=== PATIENT | female | born 1985 | race Hispanic/Latino ===

== ENCOUNTER 2018-08-31 18:55 | Emergency (ER) | payer SELFPAY ==
[~2018-08-31] VITALS: Ht 162.6 cm; Wt 81.6 kg
--- OUTSIDE RECORDS SUMMARY | 2018-08-31 18:57 | XMS REPORT ---
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 Allergies, Adverse Reactions, Alerts Allergy Name Allergy Type Status Severity Reaction(s) Onset Date Inactive Date Treating Clinician Comments promethazine HCl DA Active [place] 2018-06-28 00:00:00 promethazine HCl DA Active MO 2018-02-19 00:00:00 Medications This patient has no known medications.
== END 2018-08-31 19:28 | disposition home or self-care (01) ==
LOC: ER 18:55
DX: R50.9 Fever, unspecified (principal); R05 Cough; J02.0 Streptococcal pharyngitis
CPT/HCPCS: 99282

== ENCOUNTER 2019-04-18 20:27 | Emergency (ER) | payer SELFPAY | END 2019-04-18 20:40 | disposition left against medical advice (07) | LOC: ER 20:27 | DX: R69 Illness, unspecified (principal) ==

== ENCOUNTER 2019-06-16 16:49 | Emergency (ER) | payer SELFPAY ==
[~2019-06-16] VITALS: Ht 162.6 cm; Wt 75.7 kg
== END 2019-06-16 17:12 | disposition home or self-care (01) ==
LOC: ER 16:49
DX: J02.0 Streptococcal pharyngitis (principal)
CPT/HCPCS: 99282

== ENCOUNTER 2019-12-03 23:36 | Emergency (ER) | payer SELFPAY ==
--- OUTSIDE RECORDS SUMMARY | 2019-12-03 23:40 | XMS REPORT ---
Author Author [facility] t Organization [facility] Address [address] [place] [address] Phone Unavailable Care Team Providers Care Social Work Program Coordinator Name Role Phone NO, PCP PCP Unavailable Keily DALE Attphys Unavailable Payers Payer Name Policy Type Policy Number Effective Date Expiration Date S ource Problems This patient has no known problems. Allergies, Adverse Reactions, Alerts Allergy Name Allergy Type Status Severity Reaction(s) Onset Date Inacti ve Date Treating Clinician Comments Source promethazine HCl DA Active MO 2019-10-26 00:00:00 [facility] promethazine HCl DA Active MO 2019-06-13 00:00:00 [facility] morphine DA Active MO 2019-06-13 00:00:00 [facility] morphine DA Active MO 2018-11-18 00:00:00 [facility] Promethazine Allergy to Substance Active Severe 2018-08-31 00:00:0 0 [facility] promethazine HCl DA Active MO 2018-06-28 00:00:00 [facility] promethazine HCl DA Active MO 2018-02-19 00:00:[address] [facility] Medications This patient has no known medications. Procedures Procedure Date / Time Performed Performing Clinician Sourmica e CT of abdomen and pelvis without contrast 2019-08-17 00:00:00 VAL GAONA [facility] Encounters Start Date/Time End Date/Time Encounter Type [facility] Encounter ID Source 2019-08-17 12:21:00 2019-08-17 15:43:00 Departed Emergency Room 1 THOMAS DALE [facility] [id number] [facility] 2019-06-16 16:49:00 2019-06-16 17:12:00 Departed Emergency Room [facility] [id number] [facility] 2019-05-05 22:51:00 2019-05-05 23:30:00 Departed Emergency Room [facility] [id number] [facility] 2019-04-18 20:27:00 2019-04-18 20:40:00 Departed Emergency Room [facility] [id number] [facility] 2018-08-31 18:55:00 2018-08-31 19:28:00 Departed Emergency Room [facility] [id number] [facility] Results Test Description Test Time Test Comments Results Result Comments Source - US EXTREM NON VASC COMP 2019-10-27 01:20:00 Name: KIN BLANTON [facility] : 1985 Age/S: 34 / F [address] Unit #: [id number] [place] [address] Phys: Roxana Molina MD Acct: [id number] Dis Date: Status: REG ER PHONE #: [phone] Exam Date: 10/27/201938 FAX #: [phone] Reason: left knee pain and swelling behind the knee EXAMS: CPT CODE: [id number] US EXTREM NON VASC COMP 93527 EXAM: - US EXTREM NON VASC COMP HISTORY: Left knee pain. FINDINGS: Ultrasound the left knee at the region of interest in popliteal fossa was performed. There is a popliteal fluid collection possibly representing a cyst measuring 3 x 1 cm extending laterally. IMPRESSION: Popliteal cyst. at 0120 Reported and signed by: Valerio Dang MD CC: Roxana Molina MD Technologist: Oneyda Farr RT(S), RDOH Trnscb Date/Time: 10/27/2019 (119) [email or web address] Orig Print D/T: S: 10/27/2019 (012) Probe: PAGE 1 Signed Report - XR KNEE 3 V LT 2019-10-27 00:21:00 FAX: Roxana Molina MD [place]: St: REG -- Name: KIN BLANTON [facility] : 1985 Age/S: 34/F [address] [facility] Unit #: [id number] Loc: [place] [address] Phys: Roxana Molina MD Acct: [id number] Dis Date: Status: REG ER PHONE #: [phone] Exam Date: 10/26/2019 2708 FAX #: [phone] Reason: left knee pain EXAMS: CPT CODE: [id number] XR KNEE 3 V LT 74605 EXAM: - XR KNEE 3 V LT HISTORY: Pain. COMPARISON: None available time of interpretation. FINDINGS: AP, oblique, and lateral view of the left knee is provided. There is no acute fracture or malalignment. The joint spaces are preserved. The osseous structures are intact. IMPRESSION: No acute osseous abnormality. at 0021 Reported and signed by: Valerio Dang MD CC: Roxana Molina MD Technologist: CANDY DONATO) Trnscrd Date/Time/By: 10/27/2019 (002) : By: [email or web address] Orig Print D/T: S: 10/27/2019 (0025) PAGE [address] ABDOMEN/PELVIS WO 2019-08-17 14:56:00 [place] [address] Patient Name: KIN BLANTON MR #: [id number] : 1985 Age/Sex: 33/F Req #: [id number] Adm Physician: Ordered by: VAL KILGORE QC SCIENTIST Report #: [id number] Location: ER Room/Bed: Procedure: [id number] CT/CT ABDOMEN/PELVIS WO Exam Date: 08/17/19 Exam Time: 1400 REPORT STATUS: Signed EXAM: CT Abdomen and Pelvis WITHOUT contrast INDICATION: Right abdominal and flank pain. COMPARISON: None. TECHNIQUE: Abdomen and pelvis were scanned utilizing a multidetector helical scanner from the lung base to the pubic symphysis without administration of IV contrast. Absence of intravenous contrast decreases sensitivity for detection of focal lesions and vascular pathology. Coronal and sagittal reformations were obtained. Renal stone protocol was performed. IV CONTRAST: None. ORAL CONTRAST: Water RADIATION DOSE: Total DLP: 407.27 mGy*cm Estimated effective dose: (DLP x 0.015 x size factor) mSv COMPLICATIONS: None FINDINGS: LINES and TUBES: None. LOWER THORAX: 2 mm calcified nodule in the right middle lobe on image 2. Calcified granulomata in the right lung base on image 16 series 3. HEPATOBILIARY: No focal hepatic lesions. No biliary ductal dilation. GALLBLADDER: There are cholecystectomy clips. SPLEEN: No splenomegaly. PANCREAS: No focal masses or ductal dilatation. ADRENALS: No adrenal nodules. KIDNEYS/URETERS: No hydronephrosis. No cystic or solid mass lesions. No stones. GI TRACT: No abnormal distention, wall thickening, or evidence of bowel obstruction. Appendix is normal. PELVIC ORGANS/BLADDER: Bilateral phleboliths. LYMPH NODES: No lymphadenopathy. VESSELS: Unremarkable. PERITONEUM / RETROPERITONEUM: No free air or fluid. BONES: Unremarkable. SOFT TISSUES: Unremarkable. IMPRESSION: 1. No acute abdominal pelvic abnormality. Signed by: Dr. Hu Veloz M.D. on 08/17/2019 3:06 PM Dictated By: MARGARETTE VELOZ MD, MD 1506 Transcribed By: AMIRAH on 08/17/19 1506 COPY TO: VAL KILGORE QC SCIENTIST Urine WBC 2019-08-17 13:56:00 Test Item Urine WBC (test code = 5821-4) 0-5 0-5 [facility] [id number] 13:56:00* Test Item Value Reference Range Interpretation Comments Urine RBC (test code = 14608-2) 0-5 0-5 [facility] Ukuspsqu5944-03-06 13:56:00* Test Item Value Reference Range Interpretation Comments Urine Bacteria (test code = 59212-9) FEW NONE [facility] Epithelial Tlmkr8151-22-45 13:56:00 * Test Item Value Reference Range Interpretation Comments Urine Epithelial Cells (test code = 98255-0) FEW NONE [facility] Ilwz6846-33-90 13:56:00* Test Item Value Reference Range Interpretation Comments Urine Test (test code = 2106-3) NEGATIVE NEGATIVE [facility] Gwvkl8363-94-14 13:52:00* Test Item Value Reference Range Interpretation Comments Urine Color (test code = 5778-6) YELLOW YELLOW [facility] Eiqnwcj8287-83-60 13:52:00* Test Item Value Reference Range Interpretation Comments Urine Clarity (test code = 47046-6) CLEAR CLEAR [facility] Specific Ubgfqpr5633-94-64 13:52:00 * Test Item Value Reference Range Interpretation Comments Urine Specific Bryan (test code = 5811-5) 1.030 1.010-1.02 5 [facility] [id number] 13:52:00* Test Item Value Reference Range Interpretation Comments Urine pH (test code = 64800-6) 7 5-7 [facility] Leukocyte Snpcalql5320-06-03 13:52:00* Test Item Value Reference Range Interpretation Comments Urine Leukocyte Esterase (test code = 5799-2) NEGATIVE NEGATIVE [facility] Lszxmva4072-84-05 13:52:00* Test Item Value Reference Range Interpretation Comments Urine Nitrite (test code = 55104-1) NEGATIVE NEGATIVE [facility] Owmtwza6920-56-06 13:52:00* Test Item Value Reference Range Interpretation Comments Urine Protein (test code = 5804-0) NEGATIVE NEGATIVE [facility] Glucose (UA)2019-08-17 13:52:00* Test Item Value Reference Range Interpretation Comments Urine Glucose (UA) (test code = 2349-9) NEGATIVE NEGATIVE [facility] Yhcktuw6068-67-89 13:52:00* Test Item Value Reference Range Interpretation Comments Urine Ketones (test code = 91722-0) NEGATIVE NEGATIVE [facility] Briwcauaacrk6627-06-37 13:52:00* Test Item Value Reference Range Interpretation Comments Urine Urobilinogen (test code = 03624-2) 0.2 0.2-1 [facility] Pmlgivkbm8966-64-50 13:52:00* Test Item Value Reference Range Interpretation Comments Urine Bilirubin (test code = 1978-6) NEGATIVE NEGATIVE [facility] Ftzye1412-20-94 13:52:00* Test Item Value Reference Range Interpretation Comments Urine Blood (test code = 53941-2) NEGATIVE NEGATIVE [facility] Pbmpw5981-93-52 13:37:00* Test Item Value Reference Range Interpretation Comments Sodium Level (test code = 2951-2) 138 136-145 [facility] Center[facility]assium Tiall4566-57-01 13:37:00* Test Item Value Reference Range Interpretation Comments Potassium Level (test code = 2823-3) 4.3 3.5-5.1 [facility] CenterChloride Cokwn0055-24-89 13:37:00* Test Item Value Reference Range Interpretation Comments Chloride Level (test code = 2075-0) 105 98-107 [facility] CenterCarbon Dioxide Kmshf0979-64-59 13:37:00* Test Item Value Reference Range Interpretation Comments Carbon Dioxide Level (test code = 2028-9) 22 22- [facility] CenterAnion Bmc2306-67-51 13:37:00* Test Item Value Reference Range Interpretation Comments Anion Gap (test code = 86638-0) 15.3 8-16 [facility] CenterBlood Urea Dtchvipx4332-59-08 13:37:00* Test Item Value Reference Range Interpretation Comments Blood Urea Nitrogen (test code = 3094-0) 10 7- [facility] CenterCreatinine2020-01-25 13:37:00* Test Item Value Reference Range Interpretation Comments Creatinine (test code = 2160-0) 0.76 0.57-1.11 [facility] CenterBUN/Creatinine Cxlin0330-16-90 13:37:00* Test Item Value Reference Range Interpretation Comments BUN/Creatinine Ratio (test code = 3097-3) 13 - [facility] CenterEstimat Glomerular Filtration Rate 2019-08-17 13:37:00* Test Item Value Reference Range Interpretation Comments Estimat Glomerular Filtration Rate (test code = 983372693) > 60 >60 Ranges were taken from the National Kidney Disease Education Program and the [place] [facility] Kidney Foundation literature.Reference ranges:60 or greater: Gvgzur84-65 ( for 3 consecutive months): Chronic kidney disease 15 or less: Kidney failureCovenant Medical CenterGlucose Hoose2342-55-16 13:37:00* Test Item Value Reference Range Interpretation Comments Glucose Level (test code = VSV6558) 86 74-118 [facility] CenterCalcium Wfhsu3740-09-27 13:37:00* Test Item Value Reference Range Interpretation Comments Calcium Level (test code = 47680-8) 9.1 8.4-10.2 [facility] CenterTotal Qofcgozii0698-16-53 13:37:00* Test Item Value Reference Range Interpretation Comments Total Bilirubin (test code = 1975-2) 0.5 0.2-1.2 [facility] CenterAspartate Amino Transf (AST/SGOT) 2019-08-17 13:37:00* Test Item Value Reference Range Interpretation Comments Aspartate Amino Transf (AST/SGOT) (test code = Aspartate Amino Transf (AST/SGOT)) 16 5-34 [facility] CenterAlanine Aminotransferase (ALT/SGPT) 2019-08-17 13:37:00* Test Item Value Reference Range Interpretation Comments Alanine Aminotransferase (ALT/SGPT) (test code = 1742-6) 26 0-55 [facility] CenterTotal Qtnkznj6088-92-28 13:37:00* Test Item Value Reference Range Interpretation Comments Total Protein (test code = 2885-2) 6.6 6.5-8.1 [facility] CenterAlbumin2020-01-25 13:37:00* Test Item Value Reference Range Interpretation Comments Albumin (test code = 1751-7) 4.0 3.5-5.0 [facility] CenterGlobulin2020-01-25 13:37:00* Test Item Value Reference Range Interpretation Comments Globulin (test code = 89757-9) 2.6 2.3-3.5 [facility] CenterAlbumin/Globulin Amwkj6791-70-12 13:37:00 * Test Item Value Reference Range Interpretation Comments Albumin/Globulin Ratio (test code = 1759-0) 1.5 0.8-2.0 [facility] CenterAlkaline Foertzgykeq2563-04-24 13:37:00* Test Item Value Reference Range Interpretation Comments Alkaline Phosphatase (test code = 6768-6) 58 40-150 [facility] CenterAmylase Yazkv8398-54-04 13:37:00* Test Item Value Reference Range Interpretation Comments Amylase Level (test code = 1798-8) 54 25-125 [facility] CenterLipase2020-01-25 13:37:00* Test Item Value Reference Range Interpretation Comments Lipase (test code = 3040-3) 5 8-78 [facility] CenterHuman Chorionic Gonadotropin, Qual 2019-08-17 13:27:00* Test Item Value Reference Range Interpretation Comments Human Chorionic Gonadotropin, Qual (test code = 2118-8) NEGATIVE NEGATIVE [facility] CenterWhite Blood Fbmdy3278-91-16 13:23:00* Test Item Value Reference Range Interpretation Comments White Blood Count (test code = 6690-2) 9.78 4.8-10.8 [facility] CenterRed Blood Dblee9393-06-69 13:23:00* Test Item Value Reference Range Interpretation Comments Red Blood Count (test code = 789-8) 4.23 3.6-5.1 [facility] CenterHemoglobin2020-01-25 13:23:00* Test Item Value Reference Range Interpretation Comments Hemoglobin (test code = 73822-7) 14.1 12.0-16.0 [facility] CenterHematocrit2020-01-25 13:23:00* Test Item Value Reference Range Interpretation Comments Hematocrit (test code = 4544-3) 40.0 34.2-44.1 [facility] CenterMean Corpuscular Ttxgxa7313-84-70 13:23:00* Test Item Value Reference Range Interpretation Comments Mean Corpuscular Volume (test code = 787-2) 94.6 81-99 [facility] CenterMean Corpuscular Jevlfxdxkx8322-76-41 13:23:00* Test Item Value Reference Range Interpretation Comments Mean Corpuscular Hemoglobin (test code = 785-6) 33.3 28-32 [facility] CenterMean Corpuscular Hemoglobin Concent 2019-08-17 13:23:00* Test Item Value Reference Range Interpretation Comments Mean Corpuscular Hemoglobin Concent (test code = 786-4) 35.3 31-35 [facility] CenterRed Cell Distribution Pquao7229-18-37 13:23:00* Test Item Value Reference Range Interpretation Comments Red Cell Distribution Width (test code = 27753-7) 11.7 11.7 -14.4 [facility] CenterPlatelet Ivukc3157-68-42 13:23:00* Test Item Value Reference Range Interpretation Comments Platelet Count (test code = 777-3) 281 140-360 [facility] CenterNeutrophils (%) (Auto)2019-08-17 13:23:00 * Test Item Value Reference Range Interpretation Comments Neutrophils (%) (Auto) (test code = 94327-4) 65.8 38.7-80.0 [facility] CenterLymphocytes (%) (Auto)2019-08-17 13:23:00 * Test Item Value Reference Range Interpretation Comments Lymphocytes (%) (Auto) (test code = 736-9) 27.8 18.0-39.1 [facility] CenterMonocytes (%) (Auto)2019-08-17 13:23:00* Test Item Value Reference Range Interpretation Comments Monocytes (%) (Auto) (test code = 5905-5) 4.7 4.4-11.3 [facility] CenterEosinophils (%) (Auto)2019-08-17 13:23:00 * Test Item Value Reference Range Interpretation Comments Eosinophils (%) (Auto) (test code = 713-8) 0.9 0.0-6.0 [facility] CenterBasophils (%) (Auto)2019-08-17 13:23:00* Test Item Value Reference Range Interpretation Comments Basophils (%) (Auto) (test code = 706-2) 0.4 0.0-1.0 [facility] CenterIM GRANULOCYTES %2019-08-17 13:23:00* Test Item Value Reference Range Interpretation Comments IM GRANULOCYTES % (test code = IM GRANULOCYTES %) 0.4 0.0- 1.0 [facility] CenterNeutrophils # (Auto)2019-08-17 13:23:00* Test Item Value Reference Range Interpretation Comments Neutrophils # (Auto) (test code = 751-8) 6.4 2.1-6.9 [facility] CenterLymphocytes # (Auto)2019-08-17 13:23:00* Test Item Value Reference Range Interpretation Comments Lymphocytes # (Auto) (test code = 06219-0) 2.7 1.0-3.2 [facility] CenterMonocytes # (Auto)2019-08-17 13:23:00* Test Item Value Reference Range Interpretation Comments Monocytes # (Auto) (test code = 742-7) 0.5 0.2-0.8 [facility] CenterEosinophils # (Auto)2019-08-17 13:23:00* Test Item Value Reference Range Interpretation Comments Eosinophils # (Auto) (test code = 711-2) 0.1 0.0-0.4 [facility] CenterBasophils # (Auto)2019-08-17 13:23:00* Test Item Value Reference Range Interpretation Comments Basophils # (Auto) (test code = 704-7) 0.0 0.0-0.1 [facility] CenterAbsolute Immature Granulocyte (auto 2019-08-17 13:23:00* Test Item Value Reference Range Interpretation Comments Absolute Immature Granulocyte (auto (dante t code = Absolute Immature Granulocyte (auto) 0.04 0-0.1 [facility] CenterBASIC METABOLIC [id number] 21:20:00 * Test Item Value Reference Range Interpretation Comments SODIUM (test code = NA) 140 mmol/L 136-145 N POTASSIUM (test code = K) 4.1 mmol/L 3.5-5.1 N CHLORIDE (test code = CL) 108.0 mmol/L 98-107 H CARBON DIOXIDE (test code = CO2) 24.0 mmol/L 21-32 N ANION GAP (test code = GAP) 12.1 10-20 N GLUCOSE (test code = GLU) 94 mg/dL 74-106 N BLOOD UREA NITROGEN (test code = BUN) 12 mg/dL 7-18 N GLOMERULAR FILTRATION RATE (test code = GFR) > 60 mL/min >=60 Estimated GFR by using Modified MDRD formula.Chronic kidney disease is defined as either kidney damageor GFR <60 mL/min/1.73 m2 for >3 months. CREATININE (test code = CREAT) 0.70 mg/dL 0.55-1.02 N Note change in reference range due to change in reagent. BUN/CREATININE RATIO (test code = BUN/CREA) 16.6 10-20 N CALCIUM (test code = CA) 8.5 mg/dL 8.5-10.1 N HEPATIC FUNCTION [id number] 21:20:00* Test Item Value Reference Range Interpretation Comments TOTAL PROTEIN (test code = PROT) 6.8 gram/dL 6.4-8.2 N ALBUMIN (test code = ALB) 3.7 g/dL 3.4-5.0 N GLOBULIN (test code = GLOB) 3.1 gram/dL 2.7-4.2 N ALBUMIN/GLOBULIN RATIO (test code = A/G) 1.2 0.75-1.50 N BILIRUBIN TOTAL (test code = BILT) 0.40 mg/dL 0.0-1.0 N BILIRUBIN DIRECT (test code = BILD) 0.16 mg/dL 0.0-0.20 N SGOT/AST (test code = AST) 15 IUnit/L 15-37 N SGPT/ALT (test code = ALT) 28 IUnit/L 12-78 N ALKALINE PHOSPHATASE TOTAL (test code = ALKP) 60 IUnit/L 45-117 N Note change in reference range due to change in reagent. [id number] 21:20:00* Test Item Value Reference Range Interpretation Comments LIPASE (test code = LIP) 71 U/L 73.0-393.0 L HCG SERUM [id number] 21:20:00* Test Item Value Reference Range Interpretation Comments HCG SERUM QUAL (test code = HCGQL) NEGATIVE NEGATIVE This HCGQL test is NOT applicable for MALE patients.Check with nurse about probable order error.If Tumor Marker Test needed, nurse should order test "HCGTU"(Test #550.65529) [id number] 21:20:00* Test Item Value Reference Range Interpretation Comments TROPONIN-I (test code = TROPI) <0.015 ng/mL 0-0.045 N BASIC METABOLIC [id number] 21:19:00* Test Item Value Reference Range Interpretation Comments SODIUM (test code = NA) mmol/L 136-145 POTASSIUM (test code = K) mmol/L 3.5-5.1 CHLORIDE (test code = CL) mmol/L 98-107 CARBON DIOXIDE (test code = CO2) mmol/L 21-32 ANION GAP (test code = GAP) 10-20 GLUCOSE (test code = GLU) mg/dL 74-106 BLOOD UREA NITROGEN (test code = BUN) mg/dL 7-18 GLOMERULAR FILTRATION RATE (test code = GFR) mL/min >=60 CREATININE (test code = CREAT) mg/dL 0.55-1.02 BUN/CREATININE RATIO (test code = BUN/CREA) 10-20 CALCIUM (test code = CA) mg/dL 8.5-10.1 HEPATIC FUNCTION [id number] 21:19:00* Test Item Value Reference Range Interpretation Comments TOTAL PROTEIN (test code = PROT) gram/dL 6.4-8.2 ALBUMIN (test code = ALB) g/dL 3.4-5.0 GLOBULIN (test code = GLOB) gram/dL 2.7-4.2 ALBUMIN/GLOBULIN RATIO (test code = A/G) 0.75-1.50 BILIRUBIN TOTAL (test code = BILT) mg/dL 0.0-1.0 BILIRUBIN DIRECT (test code = BILD) mg/dL 0.0-0.20 SGOT/AST (test code = AST) IUnit/L 15-37 SGPT/ALT (test code = ALT) IUnit/L 12-78 ALKALINE PHOSPHATASE TOTAL (test code = ALKP) IUnit/L 45-117 [id number] 21:19:00* Test Item Value Reference Range Interpretation Comments LIPASE (test code = LIP) U/L 73.0-393.0 HCG SERUM [id number] 21:19:00* Test Item Value Reference Range Interpretation Comments HCG SERUM QUAL (test code = HCGQL) NEGATIVE NEGATIVE This HCGQL test is NOT applicable for MALE patients.Check with nurse about probable order error.If Tumor Marker Test needed, nurse should order test "HCGTU"(Test #550.47268) [id number] 21:19:00* Test Item Value Reference Range Interpretation Comments TROPONIN-I (test code = TROPI) ng/mL 0-0.045 BASIC METABOLIC [id number] 21:19:00* Test Item Value Reference Range Interpretation Comments SODIUM (test code = NA) 140 mmol/L 136-145 N POTASSIUM (test code = K) 4.1 mmol/L 3.5-5.1 N CHLORIDE (test code = CL) 108.0 mmol/L 98-107 H CARBON DIOXIDE (test code = CO2) mmol/L 21-32 ANION GAP (test code = GAP) 10-20 GLUCOSE (test code = GLU) mg/dL 74-106 BLOOD UREA NITROGEN (test code = BUN) mg/dL 7-18 GLOMERULAR FILTRATION RATE (test code = GFR) mL/min >=60 CREATININE (test code = CREAT) mg/dL 0.55-1.02 BUN/CREATININE RATIO (test code = BUN/CREA) 10-20 CALCIUM (test code = CA) mg/dL 8.5-10.1 HEPATIC FUNCTION [id number] 21:19:00* Test Item Value Reference Range Interpretation Comments TOTAL PROTEIN (test code = PROT) gram/dL 6.4-8.2 ALBUMIN (test code = ALB) g/dL 3.4-5.0 GLOBULIN (test code = GLOB) gram/dL 2.7-4.2 ALBUMIN/GLOBULIN RATIO (test code = A/G) 0.75-1.50 BILIRUBIN TOTAL (test code = BILT) mg/dL 0.0-1.0 BILIRUBIN DIRECT (test code = BILD) mg/dL 0.0-0.20 SGOT/AST (test code = AST) IUnit/L 15-37 SGPT/ALT (test code = ALT) IUnit/L 12-78 ALKALINE PHOSPHATASE TOTAL (test code = ALKP) IUnit/L 45-117 [id number] 21:19:00* Test Item Value Reference Range Interpretation Comments LIPASE (test code = LIP) U/L 73.0-393.0 HCG SERUM [id number] 21:19:00* Test Item Value Reference Range Interpretation Comments HCG SERUM QUAL (test code = HCGQL) NEGATIVE NEGATIVE This HCGQL test is NOT applicable for MALE patients.Check with nurse about probable order error.If Tumor Marker Test needed, nurse should order test "HCGTU"(Test #550.49304) [id number] 21:19:00* Test Item Value Reference Range Interpretation Comments TROPONIN-I (test code = TROPI) ng/mL 0-0.045 - XR CHEST 1 [id number] 21:17:00 FAX: Vipul Anderson MD [phone] [place]: St: [facility] FAX: Chuckie Ewing NP [phone] Name: HARVINDERKIN [facility] : 1985 Age/S: 33/F [address] [facility] Unit #: [id number] Loc: [place] [address] Phys: Chuckie Ewing NP Acct: [id number] Dis Date: Status: REG ER PHONE #: [phone] Exam Date: 06/13/20192108 FAX #: [phone] Reason: CHEST PAIN EXAMS: CPT CODE: [id number] XR CHEST 1 V 51603 REASON FOR EXAM: CHEST PAIN EXAM ORDER DATE: 06/13/2019 8:20 PM Ordering: Chuckie Ewing NP Attending:Vipul Anderson MD Location: PROCEDURE: - XR CHEST 1 V COMPARISON: 11/18/2018 FINDINGS: Portable AP frontal view of the chest obtained at 9:06 PM shows clear lungs without evidence of consolidation. There is no evidence of effusion. The heart size is within normal limits. Pulmonary vasculatures are unremarkable. IMPRESSION: No active disease. at 2116 Reported and signed by: Elmer Esparza M.D. CC: Vipul Anderson MD; Chuckie Ewing NP Technologist: Anthony Zapata RT(R) Trnscrd Date/Time/By: 06/13/2019 (2116) : By: Issac Orig Print D/T: S: 06/13/2019 (2119) PAGE 1 Signed Report CBC W/O [id number] 21:08:00* Test Item Value Reference Range Interpretation Comments WHITE BLOOD CELL (test code = WBC) 8.5 K/mm3 4.5-12.5 N RED BLOOD CELL (test code = RBC) 3.96 mill/mm3 3.7-5.2 N HEMOGLOBIN (test code = HGB) 12.8 gram/dL 11.5-15.5 N HEMATOCRIT (test code = HCT) 37.7 % 36.0-46.0 N MEAN CELL VOLUME (test code = MCV) 95.2 fL 80-98 N MEAN CELL HGB (test code = MCH) 32.3 picogram 27.0-33.0 N MEAN CELL HGB CONCETRATION (test code = MCHC) 34.0 gram/dL 33.0-36. 0 N RED CELL DISTRIBUTION WIDTH (test code = RDW) 11.3 % 11.6-16. 2 L PLATELET COUNT (test code = PLT) 309 K/mm3 150-450 N MEAN PLATELET VOLUME (test code = MPV) 9.1 fL 6.7-11.0 N CBC W/O [id number] 21:02:00* Test Item Value Reference Range Interpretation Comments WHITE BLOOD CELL (test code = WBC) K/mm3 4.5-12.5 RED BLOOD CELL (test code = RBC) mill/mm3 3.7-5.2 HEMOGLOBIN (test code = HGB) 12.8 gram/dL 11.5-15.5 N HEMATOCRIT (test code = HCT) 37.7 % 36.0-46.0 N MEAN CELL VOLUME (test code = MCV) fL 80-98 MEAN CELL HGB (test code = MCH) picogram 27.0-33.0 MEAN CELL HGB CONCETRATION (test code = MCHC) gram/dL 33.0-36. 0 RED CELL DISTRIBUTION WIDTH (test code = RDW) % 11.6-16. 2 PLATELET COUNT (test code = PLT) K/mm3 150-450 MEAN PLATELET VOLUME (test code = MPV) fL 6.7-11.0 BASIC METABOLIC [id number] 16:12:00* Test Item Value Reference Range Interpretation Comments SODIUM (test code = NA) 143 mmol/L 136-145 N POTASSIUM (test code = K) 4.0 mmol/L 3.5-5.1 N CHLORIDE (test code = CL) 109.0 mmol/L 98-107 H CARBON DIOXIDE (test code = CO2) 25.0 mmol/L 21-32 N ANION GAP (test code = GAP) 13.0 10-20 N GLUCOSE (test code = GLU) 114 mg/dL 74-106 H BLOOD UREA NITROGEN (test code = BUN) 15 mg/dL 7-18 N GLOMERULAR FILTRATION RATE (test code = GFR) > 60 mL/min >=60 Estimated GFR by using Modified MDRD formula.Chronic kidney disease is defined as either kidney damageor GFR <60 mL/min/1.73 m2 for >3 months. CREATININE (test code = CREAT) 0.70 mg/dL 0.55-1.02 N Note change in reference range due to change in reagent. BUN/CREATININE RATIO (test code = BUN/CREA) 21.4 10-20 H CALCIUM (test code = CA) 8.5 mg/dL 8.5-10.1 N HEPATIC FUNCTION [id number] 16:12:00* Test Item Value Reference Range Interpretation Comments TOTAL PROTEIN (test code = PROT) 7.1 gram/dL 6.4-8.2 N ALBUMIN (test code = ALB) 3.8 g/dL 3.4-5.0 N GLOBULIN (test code = GLOB) 3.3 gram/dL 2.7-4.2 N ALBUMIN/GLOBULIN RATIO (test code = A/G) 1.2 0.75-1.50 N BILIRUBIN TOTAL (test code = BILT) 0.40 mg/dL 0.0-1.0 N BILIRUBIN DIRECT (test code = BILD) 0.12 mg/dL 0.0-0.20 N SGOT/AST (test code = AST) 12 IUnit/L 15-37 L SGPT/ALT (test code = ALT) 48 IUnit/L 12-78 N ALKALINE PHOSPHATASE TOTAL (test code = ALKP) 72 IUnit/L 45-117 N Note change in reference range due to change in reagent. [id number] 16:12:00* Test Item Value Reference Range Interpretation Comments LIPASE (test code = LIP) 110 U/L 73.0-393.0 N HCG SERUM [id number] 16:12:00* Test Item Value Reference Range Interpretation Comments HCG SERUM QUAL (test code = HCGQL) NEGATIVE NEGATIVE This HCGQL test is NOT applicable for MALE patients.Check with nurse about probable order error.If Tumor Marker Test needed, nurse should order test "HCGTU"(Test #550.88258) BASIC METABOLIC [id number] 15:52:00* Test Item Value Reference Range Interpretation Comments SODIUM (test code = NA) 143 mmol/L 136-145 N POTASSIUM (test code = K) 4.0 mmol/L 3.5-5.1 N CHLORIDE (test code = CL) 109.0 mmol/L 98-107 H CARBON DIOXIDE (test code = CO2) mmol/L 21-32 ANION GAP (test code = GAP) 10-20 GLUCOSE (test code = GLU) mg/dL 74-106 BLOOD UREA NITROGEN (test code = BUN) mg/dL 7-18 GLOMERULAR FILTRATION RATE (test code = GFR) mL/min >=60 CREATININE (test code = CREAT) mg/dL 0.55-1.02 BUN/CREATININE RATIO (test code = BUN/CREA) 10-20 CALCIUM (test code = CA) mg/dL 8.5-10.1 HEPATIC FUNCTION [id number] 15:52:00* Test Item Value Reference Range Interpretation Comments TOTAL PROTEIN (test code = PROT) gram/dL 6.4-8.2 ALBUMIN (test code = ALB) g/dL 3.4-5.0 GLOBULIN (test code = GLOB) gram/dL 2.7-4.2 ALBUMIN/GLOBULIN RATIO (test code = A/G) 0.75-1.50 BILIRUBIN TOTAL (test code = BILT) mg/dL 0.0-1.0 BILIRUBIN DIRECT (test code = BILD) mg/dL 0.0-0.20 SGOT/AST (test code = AST) IUnit/L 15-37 SGPT/ALT (test code = ALT) IUnit/L 12-78 ALKALINE PHOSPHATASE TOTAL (test code = ALKP) IUnit/L 45-117 [id number] 15:52:00* Test Item Value Reference Range Interpretation Comments LIPASE (test code = LIP) U/L 73.0-393.0 HCG SERUM [id number] 15:52:00* Test Item Value Reference Range Interpretation Comments HCG SERUM QUAL (test code = HCGQL) NEGATIVE NEGATIVE This HCGQL test is NOT applicable for MALE patients.Check with nurse about probable order error.If Tumor Marker Test needed, nurse should order test "HCGTU"(Test #550.64826) BASIC METABOLIC [id number] 15:48:00* Test Item Value Reference Range Interpretation Comments SODIUM (test code = NA) 143 mmol/L 136-145 N POTASSIUM (test code = K) 4.0 mmol/L 3.5-5.1 N CHLORIDE (test code = CL) 109.0 mmol/L 98-107 H CARBON DIOXIDE (test code = CO2) mmol/L 21-32 ANION GAP (test code = GAP) 10-20 GLUCOSE (test code = GLU) mg/dL 74-106 BLOOD UREA NITROGEN (test code = BUN) mg/dL 7-18 GLOMERULAR FILTRATION RATE (test code = GFR) mL/min >=60 CREATININE (test code = CREAT) mg/dL 0.55-1.02 BUN/CREATININE RATIO (test code = BUN/CREA) 10-20 CALCIUM (test code = CA) mg/dL 8.5-10.1 HEPATIC FUNCTION [id number] 15:48:00* Test Item Value Reference Range Interpretation Comments TOTAL PROTEIN (test code = PROT) gram/dL 6.4-8.2 ALBUMIN (test code = ALB) g/dL 3.4-5.0 GLOBULIN (test code = GLOB) gram/dL 2.7-4.2 ALBUMIN/GLOBULIN RATIO (test code = A/G) 0.75-1.50 BILIRUBIN TOTAL (test code = BILT) mg/dL 0.0-1.0 BILIRUBIN DIRECT (test code = BILD) mg/dL 0.0-0.20 SGOT/AST (test code = AST) IUnit/L 15-37 SGPT/ALT (test code = ALT) IUnit/L 12-78 ALKALINE PHOSPHATASE TOTAL (test code = ALKP) IUnit/L 45-117 [id number] 15:48:00* Test Item Value Reference Range Interpretation Comments LIPASE (test code = LIP) U/L 73.0-393.0 HCG SERUM [id number] 15:48:00* Test Item Value Reference Range Interpretation Comments HCG SERUM QUAL (test code = HCGQL) NEGATIVE URINALYSIS [id number] 15:44:00* Test Item Value Reference Range Interpretation Comments UA COLOR (test code = COLU) YELLOW YELLOW UA APPEARANCE (test code = APPU) SLIGHT CLOUDY CLEAR A UA GLUCOSE DIPSTICK (test code = DGLUU) NEGATIVE mg/dL NEGATIVE UA BILIRUBIN DIPSTICK (test code = BILU) NEGATIVE NEGATIVE UA KETONE DIPSTICK (test code = KETU) TRACE mg/dL NEGATIVE UA SPECIFIC GRAVITY (test code = SGU) >=1.030 1.001-1.035 UA BLOOD DIPSTICK (test code = LIVIA) 2+ (Moderate) NEGATIVE A UA PH DIPSTICK (test code = AKUA) 6.0 5.0-8.0 UA PROTEIN DIPSTICK (test code = PROU) TRACE (15) mg/dL Neg-15 UA UROBILINIOGEN DIPSTICK (test code = URO) 0.2 mg/dL 0.0-0.2 UA NITRITE DIPSTICK (test code = APOLINAR) NEGATIVE NEGATIVE UA LEUKOCYTE ESTERASE W REFLEX (test code = LEUUR) NEGATIVE NEG ATIVE UA WBC (test code = WBCU) 0-5 per HPF 0-5 UA RBC (test code = RBCU) 3-5 #/HPF 0-5 UA EPITHELIAL CELLS (test code = EPIU) MOD per HPF FEW UA BACTERIA (test code = BACU) FEW #/HPF NONE A UA MUCUS (test code = MUCU) MODERATE #/LPF FEW A Urine Source? Clean CatchURINALYSIS [id number] 15:40:00* Test Item Value Reference Range Interpretation Comments UA COLOR (test code = COLU) YELLOW YELLOW UA APPEARANCE (test code = APPU) SLIGHT CLOUDY CLEAR A UA GLUCOSE DIPSTICK (test code = DGLUU) NEGATIVE mg/dL NEGATIVE UA BILIRUBIN DIPSTICK (test code = BILU) NEGATIVE NEGATIVE UA KETONE DIPSTICK (test code = KETU) TRACE mg/dL NEGATIVE UA SPECIFIC GRAVITY (test code = SGU) >=1.030 1.001-1.035 UA BLOOD DIPSTICK (test code = LIVIA) 2+ (Moderate) NEGATIVE A UA PH DIPSTICK (test code = AKUA) 6.0 5.0-8.0 UA PROTEIN DIPSTICK (test code = PROU) TRACE (15) mg/dL Neg-15 UA UROBILINIOGEN DIPSTICK (test code = URO) 0.2 mg/dL 0.0-0.2 UA NITRITE DIPSTICK (test code = APOLINAR) NEGATIVE NEGATIVE UA LEUKOCYTE ESTERASE W REFLEX (test code = LEUUR) NEGATIVE NEG ATIVE UA WBC (test code = WBCU) per HPF 0-5 UA RBC (test code = RBCU) per HPF 0-5 UA EPITHELIAL CELLS (test code = EPIU) per HPF Few UA BACTERIA (test code = BACU) per HPF NONE Urine Source? Clean CatchURINALYSIS [id number] 15:32:00* Test Item Value Reference Range Interpretation Comments UA COLOR (test code = COLU) YELLOW YELLOW UA APPEARANCE (test code = APPU) SLIGHT CLOUDY CLEAR A UA BILIRUBIN DIPSTICK (test code = BILU) NEGATIVE UA SPECIFIC GRAVITY (test code = SGU) 1.001-1.035 UA PH DIPSTICK (test code = AKUA) 5.0-8.0 UA UROBILINIOGEN DIPSTICK (test code = URO) mg/dL 0.0-0.2 UA NITRITE DIPSTICK (test code = APOLINAR) NEGATIVE UA LEUKOCYTE ESTERASE W REFLEX (test code = LEUUR) NEG ATIVE UA WBC (test code = WBCU) per HPF 0-5 UA RBC (test code = RBCU) per HPF 0-5 UA EPITHELIAL CELLS (test code = EPIU) per HPF Few UA BACTERIA (test code = BACU) per HPF NONE Urine Source? Clean CatchCBC W/O [id number] 15:29:00* Test Item Value Reference Range Interpretation Comments WHITE BLOOD CELL (test code = WBC) 9.5 K/mm3 4.5-12.5 N RED BLOOD CELL (test code = RBC) 4.27 mill/mm3 3.7-5.2 N HEMOGLOBIN (test code = HGB) 14.1 gram/dL 11.5-15.5 N HEMATOCRIT (test code = HCT) 39.2 % 36.0-46.0 N MEAN CELL VOLUME (test code = MCV) 91.8 fL 80-98 N MEAN CELL HGB (test code = MCH) 33.0 picogram 27.0-33.0 N MEAN CELL HGB CONCETRATION (test code = MCHC) 36.0 gram/dL 33.0-36. 0 N RED CELL DISTRIBUTION WIDTH (test code = RDW) 11.4 % 11.6-16. 2 L PLATELET COUNT (test code = PLT) 346 K/mm3 150-450 N MEAN PLATELET VOLUME (test code = MPV) 9.2 fL 6.7-11.0 N [id number] 11:49:00 RUN DATE: 11/20/18 [place] PAGE 1 RUN TIME: 1149 Specimen Inqui ry RUN USER: INTERFACE PATIENT: KIN BLANTON ACCT #: [id number] LOC: Won3SOBS U #: [id number] AGE/SX: 33/F ROOM: [facility] RE11/18/18REG DR: Nadine Churchill : 85 BED: A DIS: 11/19/18 STATUS: DIS Peggy TLOC: SPEC #: [id number] RECD: 11/19/18 STATUS: RUSSEL REDez #: [id number] BRYNN: 11/18/18- SUBM DR: Pasquale Preston MD ENTERED: 11/19/18 SP TYPE: GALLBLADD NAMRATA DR: ORDERED: GROSS MARKERS: ABNORMAL TISSUE, GALLBLADDER PROCE DURES: JESSEE (11/20/18) TISSUES: GALLBLADDER, NOS CLINICA L HISTORY COLLECTION DATE: 11/18/18 CHOLECYSTITIS, CHOLELITHIASIS FINAL DIAGNOSIS Gallbladder, cholecystectomy: CHRONIC CHOLECYSTITIS CHOLELITHIASIS NEGATIVE FOR MALIGNANCY FA/sm A 44490 MACROSCOPIC The specimen is received in formalin, labeled with the sonu jaffe's name, and identified as "gallbladder". It consists of a gallbladder w hich has been previously incised and measures 6.8 X 3 X 2 cm. The serosal beverly face is unremarkable. The gallbladder is packed with multiple mcconnell-brown multi faceted gallstones measuring from 0.6 to 0.9 cm. Additional similar gallstone s are present in the container and measure from 0.6 to 1.1 cm and there is a l arger light green irregular gallstone also present in the container which everardo ures 1.3 cm. The gallbladder mucosa is velvety and the gallbladder wall measu res 0.2 cm in thickness. 0.3 cm of cystic duct is attached to the gallbladder . Samples of the specimen are submitted for microscopic evaluation in a Procural e cassette. GROSS PERFORMED AT [facility] [address] CONTINUED ON NEXT PAGE RUN DATE: 11/20/18 [facility] PAGE 2 RUN TIME: 1149 Specimen Inquiry RUN USER: INTERFACE SPEC #: [id number] PATIENT: BLANTON,KIN #[id number] (Continued)---- -------- MACROSCOPIC (Continued) SUE CHEN [id number] ( [phone] MICROSCOPIC All of the stains, including any control s performed, stain appropriately. MICROSCOPIC PERFORMED AT [facility] [address], [place] [address] (p)[phone] PERFORMING SITE Diagnosis performed at: [facility] [address] [place] [address] - Signed SIGNATURE ON FILE Rico Wynne MD 11/20/18 1149 END OF REPORT - CT ABD PELVIS [id number] 11:34:00 Name: IKN BLANTON [facility] : 1985 Age/S: 33 / F [facility] Unit #: [id number] Loc: [place] [address] Phys: DYLAN CARVER MD Acct: [id number] Dis Date: Status: ADM IN PHONE #: [phone] Exam Date: 11/18/2018 1101 FAX #: [phone] Reason: abdominal pain EXAMS: CPT CODE: [id number] CT ABD PELVIS W/CONT 19715 HISTORY: abdominal pain TECHNIQUE: Immediate and delayed [address] images were obtained through the abdomen and pelvis after IV administration of 100 mL of Isovue-370 contrast. Sagittal and coronal reformatted images were generated. Automated exposure control for dose reduction. COMPARISON: Ultrasound from the same date. FINDINGS: Lung bases are clear. Normal heart size. Cholelithiasis. No gallbladder wall thickening or pericholecystic fluid. No biliary dilation. H epatomegaly. Pancreas, spleen, adrenal glands, and kidneys are unremarkabl e. Limited evaluation of the GI tract without oral contrast. Stoma ch, small bowel, appendix, and colon are unremarkable. No fr ee air or free fluid. No lymphadenopathy. Abdominal aorta is normal in augustina iber. No free air or free fluid. No lymphadenopathy. Abdominal aor ta is normal in caliber. Partially collapsed urinary bladder is unremarkable. Uterus and ovaries are grossly unremarkable. No pelvic f ree fluid. Regional osseous structures are unremarkable. IMPRESSION: No acute intra-abdominal process. Cholelithiasis. at 1134 Reported and signed by: Leigh Mina D.O. PAGE 1 Signed Report (CONTINUED) Name: KIN BLANTON [facility] : 1985 Age/S: 33 / F [address] [facility] Unit #: [id number] Loc: [place] [address] Ph ys: DYLAN CARVER MD Acct: [id number] Dis Date: Status: ADM IN PHONE #: [phone] Exam Date: 11/18/2018 1106 FAX #: [phone] Reason: abdominal pain EXAMS: CPT CODE: [id number] CT ABD PELVIS W/CONT 80970 <Continued> CC: DYLAN CARVER MD Technologist:Judy Montoya RT(R),CT; CTDI: DLP: Trnscb Date/Time: 11/18/2018 (1134) [email or web address] Orig Print D/T: S: 11/18/2018 (7567) CTDI: DLP: PAGE 2 Signed Report URINALYSIS COMPLETE 2018-11-18 07:55:00* Test Item Value Reference Range Interpretation Comments UA COLOR (test code = COLU) LIGHT YELLOW YELLOW UA APPEARANCE (test code = APPU) SLIGHTLY CLOUDY CLEAR A UA GLUCOSE DIPSTICK (test code = DGLUU) NEGATIVE mg/dL NEGATIVE UA BILIRUBIN DIPSTICK (test code = BILU) NEGATIVE mg/dL NEGATIVE UA KETONE DIPSTICK (test code = KETU) NEGATIVE mg/dL NEGATIVE UA SPECIFIC GRAVITY (test code = SGU) 1.015 1.001-1.035 UA BLOOD DIPSTICK (test code = LIVIA) 2+ (Moderate) mg/dL NEGATIVE A UA PH DIPSTICK (test code = AKUA) 6.0 5.0-8.0 UA PROTEIN DIPSTICK (test code = PROU) NEGATIVE mg/dL NEGATIVE UA UROBILINIOGEN DIPSTICK (test code = URO) NEGATIVE mg/dL NEGATIVE UA NITRITE DIPSTICK (test code = APOLINAR) NEGATIVE NEGATIVE UA LEUKOCYTE ESTERASE W REFLEX (test code = LEUUR) NEGATIVE Jones/uL NEGATIVE UA WBC (test code = WBCU) 0-5 per HPF 0-5 UA RBC (test code = RBCU) 0-2 #/HPF 0-5 UA EPITHELIAL CELLS (test code = EPIU) MANY per HPF FEW UA BACTERIA (test code = BACU) FEW #/HPF NONE A UA MUCUS (test code = MUCU) FEW #/LPF FEW UA AMORPHOUS SEDIMENT (test code = AMORU) FEW #/LPF NONE Urine Source? Clean Catch- US ABDOMEN [id number] 07:42:00 Name: KIN BLANTON [facility] : 1985 Age/S: 33 / F [address] [facility] Unit #: [id number] Loc: [place] [address] Phys: Marti Parrish MD Acct: [id number] Dis Date: Status: REG ER PHONE #: [phone] Exam Date: 11/18/2018 0732 FAX #: [phone] Reason: RUQ PAIN EXAMS: CPT CODE: [id number] US ABDOMEN [facility] [address] HISTORY: RUQ PAIN TECHNIQUE: Static grayscale and color Doppler images from real time sonographic evaluation of the right upper quadrant. Spectral waveform analysis of the portal vein. COMPARISON: 06/28/18 FINDINGS: LIVER: Hepatomegaly, measuring 17.3 cm craniocaudal. Normal echogenicity without focal lesion. No intrahepatic biliary dilation. Hepatopedal flow identified within the portal vein. GALLBLADDER: Cholelit hiasis. No gallbladder wall thickening or pericholecystic fluid. Technolog ist reports negative sonographic Mares's sign. COMMON DUCT: Normal caliber at 4 mm. PANCREAS: No visible pancreatic abnormality. RI GHT KIDNEY: Normal parenchymal echogenicity. Measures 9.3 x 4.4 x 4.3 cm. No hydronephrosis. OTHER: There is no free fluid. IMPRESS ION: Cholelithiasis. No sonographic evidence of acute cholecy stitis. Hepatomegaly. at 0742 Reported and signed b y: Anjana Mina D.O. CC: Technologist: ERIKA DOE rnscb Date/Time: 11/18/2018 (741) [email or web address] Orig Print D /T: S: 11/18/2018 (5278) Probe: PAGE 1 Signed Report - XR CHEST 1 [id number] 06:07:00 [place]: St: REG Name: KIN ROBINS [facility] : [birth year] Age/S: 33/F [address] [facility] Unit #: [id number] Loc: [place] [address] Phys: Marti Parrish MD Acct: [id number] Dis Date: Status: REG ER PHONE #: [phone] Exam Date: 11/18/2018 06 FAX #: [phone] Reason: CHEST PAIN EXAMS: CPT CODE: [id number] XR CHEST 1 V 26600 Exam: AP chest Locat ion: F6 History: CHEST PAIN Comparison: 03/27/2018 Findings: The lungs are clear. No infiltrate or effusion is s een. The pulmonary vasculature is normal. The heart size is normal. The me diastinal silhouette is unremarkable. The bony thorax is intact. Impression: No acute disease. Electronically S igned by Beto Thomas on 11/18/2018 at 0 607 Reported and signed by: Johnny elias M.D. CC: Technologist: RT KINGA(R) Trnscrd Date/Time/By: 11/18/2018 (0607) : By: EveFC Orig Print D/T: S: 11/18/2018 (0608) PAGE 1 Signed Report BASIC METABOLIC [id number] 06:03:00* Test Item Value Reference Range Interpretation Comments SODIUM (test code = NA) 140 mmol/L 136-145 N POTASSIUM (test code = K) 4.1 mmol/L 3.5-5.1 N CHLORIDE (test code = CL) 108.0 mmol/L 98-107 H CARBON DIOXIDE (test code = CO2) 22.0 mmol/L 21-32 N ANION GAP (test code = GAP) 14.1 10-20 N GLUCOSE (test code = GLU) 98 mg/dL 74-106 N BLOOD UREA NITROGEN (test code = BUN) 19 mg/dL 7-18 H GLOMERULAR FILTRATION RATE (test code = GFR) > 60 mL/min >=60 Estimated GFR by using Modified MDRD formula.Chronic kidney disease is defined as either kidney damageor GFR <60 mL/min/1.73 m2 for >3 months. CREATININE (test code = CREAT) 0.80 mg/dL 0.55-1.02 N Note change in reference range due to change in reagent. BUN/CREATININE RATIO (test code = BUN/CREA) 23.8 10-20 H CALCIUM (test code = CA) 8.4 mg/dL 8.5-10.1 L HEPATIC FUNCTION [id number] 06:03:00* Test Item Value Reference Range Interpretation Comments TOTAL PROTEIN (test code = PROT) 6.7 gram/dL 6.4-8.2 N ALBUMIN (test code = ALB) 3.6 g/dL 3.4-5.0 N GLOBULIN (test code = GLOB) 3.1 gram/dL 2.7-4.2 N ALBUMIN/GLOBULIN RATIO (test code = A/G) 1.2 0.75-1.50 N BILIRUBIN TOTAL (test code = BILT) 0.30 mg/dL 0.0-1.0 N BILIRUBIN DIRECT (test code = BILD) 0.08 mg/dL 0.0-0.20 N SGOT/AST (test code = AST) 15 IUnit/L 15-37 N SGPT/ALT (test code = ALT) 32 IUnit/L 12-78 N ALKALINE PHOSPHATASE TOTAL (test code = ALKP) 79 IUnit/L 45-117 N Note change in reference range due to change in reagent. [id number] 06:03:00* Test Item Value Reference Range Interpretation Comments LIPASE (test code = LIP) 97 U/L 73.0-393.0 N HCG SERUM [id number] 06:03:00* Test Item Value Reference Range Interpretation Comments HCG SERUM QUAL (test code = HCGQL) NEGATIVE NEGATIVE This HCGQL test is NOT applicable for MALE patients.Check with nurse about probable order error.If Tumor Marker Test needed, nurse should order test "HCGTU"(Test #550.04336) [id number] 06:03:00* Test Item Value Reference Range Interpretation Comments TROPONIN-I (test code = TROPI) <0.015 ng/mL 0-0.045 N BASIC METABOLIC [id number] 05:53:00* Test Item Value Reference Range Interpretation Comments SODIUM (test code = NA) 140 mmol/L 136-145 N POTASSIUM (test code = K) 4.1 mmol/L 3.5-5.1 N CHLORIDE (test code = CL) 108.0 mmol/L 98-107 H CARBON DIOXIDE (test code = CO2) mmol/L 21-32 ANION GAP (test code = GAP) 10-20 GLUCOSE (test code = GLU) mg/dL 74-106 BLOOD UREA NITROGEN (test code = BUN) mg/dL 7-18 GLOMERULAR FILTRATION RATE (test code = GFR) mL/min >=60 CREATININE (test code = CREAT) mg/dL 0.55-1.02 BUN/CREATININE RATIO (test code = BUN/CREA) 10-20 CALCIUM (test code = CA) mg/dL 8.5-10.1 HEPATIC FUNCTION [id number] 05:53:00* Test Item Value Reference Range Interpretation Comments TOTAL PROTEIN (test code = PROT) gram/dL 6.4-8.2 ALBUMIN (test code = ALB) g/dL 3.4-5.0 GLOBULIN (test code = GLOB) gram/dL 2.7-4.2 ALBUMIN/GLOBULIN RATIO (test code = A/G) 0.75-1.50 BILIRUBIN TOTAL (test code = BILT) mg/dL 0.0-1.0 BILIRUBIN DIRECT (test code = BILD) mg/dL 0.0-0.20 SGOT/AST (test code = AST) IUnit/L 15-37 SGPT/ALT (test code = ALT) IUnit/L 12-78 ALKALINE PHOSPHATASE TOTAL (test code = ALKP) IUnit/L 45-117 [id number] 05:53:00* Test Item Value Reference Range Interpretation Comments LIPASE (test code = LIP) U/L 73.0-393.0 HCG SERUM [id number] 05:53:00* Test Item Value Reference Range Interpretation Comments HCG SERUM QUAL (test code = HCGQL) NEGATIVE NEGATIVE This HCGQL test is NOT applicable for MALE patients.Check with nurse about probable order error.If Tumor Marker Test needed, nurse should order test "HCGTU"(Test #550.39844) [id number] 05:53:00* Test Item Value Reference Range Interpretation Comments TROPONIN-I (test code = TROPI) ng/mL 0-0.045 BASIC METABOLIC [id number] 05:52:00* Test Item Value Reference Range Interpretation Comments SODIUM (test code = NA) 140 mmol/L 136-145 N POTASSIUM (test code = K) 4.1 mmol/L 3.5-5.1 N CHLORIDE (test code = CL) 108.0 mmol/L 98-107 H CARBON DIOXIDE (test code = CO2) mmol/L 21-32 ANION GAP (test code = GAP) 10-20 GLUCOSE (test code = GLU) mg/dL 74-106 BLOOD UREA NITROGEN (test code = BUN) mg/dL 7-18 GLOMERULAR FILTRATION RATE (test code = GFR) mL/min >=60 CREATININE (test code = CREAT) mg/dL 0.55-1.02 BUN/CREATININE RATIO (test code = BUN/CREA) 10-20 CALCIUM (test code = CA) mg/dL 8.5-10.1 HEPATIC FUNCTION [id number] 05:52:00* Test Item Value Reference Range Interpretation Comments TOTAL PROTEIN (test code = PROT) gram/dL 6.4-8.2 ALBUMIN (test code = ALB) g/dL 3.4-5.0 GLOBULIN (test code = GLOB) gram/dL 2.7-4.2 ALBUMIN/GLOBULIN RATIO (test code = A/G) 0.75-1.50 BILIRUBIN TOTAL (test code = BILT) mg/dL 0.0-1.0 BILIRUBIN DIRECT (test code = BILD) mg/dL 0.0-0.20 SGOT/AST (test code = AST) IUnit/L 15-37 SGPT/ALT (test code = ALT) IUnit/L 12-78 ALKALINE PHOSPHATASE TOTAL (test code = ALKP) IUnit/L 45-117 [id number] 05:52:00* Test Item Value Reference Range Interpretation Comments LIPASE (test code = LIP) U/L 73.0-393.0 HCG SERUM [id number] 05:52:00* Test Item Value Reference Range Interpretation Comments HCG SERUM QUAL (test code = HCGQL) NEGATIVE [id number] 05:52:00* Test Item Value Reference Range Interpretation Comments TROPONIN-I (test code = TROPI) ng/mL 0-0.045 CBC W/O [id number] 05:31:00* Test Item Value Reference Range Interpretation Comments WHITE BLOOD CELL (test code = WBC) K/mm3 4.5-12.5 RED BLOOD CELL (test code = RBC) mill/mm3 3.7-5.2 HEMOGLOBIN (test code = HGB) 14.0 gram/dL 11.5-15.5 N HEMATOCRIT (test code = HCT) 40.7 % 36.0-46.0 N MEAN CELL VOLUME (test code = MCV) fL 80-98 MEAN CELL HGB (test code = MCH) picogram 27.0-33.0 MEAN CELL HGB CONCETRATION (test code = MCHC) gram/dL 33.0-36. 0 RED CELL DISTRIBUTION WIDTH (test code = RDW) % 11.6-16. 2 PLATELET COUNT (test code = PLT) K/mm3 150-450 MEAN PLATELET VOLUME (test code = MPV) fL 6.7-11.0 CBC W/O [id number] 05:31:00* Test Item Value Reference Range Interpretation Comments WHITE BLOOD CELL (test code = WBC) 11.9 K/mm3 4.5-12.5 N RED BLOOD CELL (test code = RBC) 4.32 mill/mm3 3.7-5.2 N HEMOGLOBIN (test code = HGB) 14.0 gram/dL 11.5-15.5 N HEMATOCRIT (test code = HCT) 40.7 % 36.0-46.0 N MEAN CELL VOLUME (test code = MCV) 94.2 fL 80-98 N MEAN CELL HGB (test code = MCH) 32.4 picogram 27.0-33.0 N MEAN CELL HGB CONCETRATION (test code = MCHC) 34.4 gram/dL 33.0-36. 0 N RED CELL DISTRIBUTION WIDTH (test code = RDW) 11.5 % 11.6-16. 2 L PLATELET COUNT (test code = PLT) 353 K/mm3 150-450 N MEAN PLATELET VOLUME (test code = MPV) 9.2 fL 6.7-11.0 N
== END 2019-12-04 00:01 | disposition left against medical advice (07) ==
LOC: ER 23:36
DX: R69 Illness, unspecified (principal)

== ENCOUNTER 2020-03-14 17:13 | Emergency (ER) | payer SELFPAY ==
[~2020-03-14] VITALS: Ht 162.6 cm; Wt 75.7 kg
[2020-03-14 18:32] LABS: CLARITY,URINE CLEAR (CLEAR); COLOR,URINE YELLOW (YELLOW)
[2020-03-14 18:33] LABS: BASOPHILS % 0.5 % (0.0-1.0); EOSINOPHILS # (AUTO) 0.1 (0.0-0.4); EOSINOPHILS % 1.2 % (0.0-6.0); HEMATOCRIT 40.9 % (34.2-44.1); LYMPHOCYTES # (AUTO) 2.9 (1.0-3.2); LYMPHOCYTES % 34.6 % (18.0-39.1); MEAN CORPUSCULAR HEMOGLOBIN 32.3 pg (28-32); MEAN CORPUSCULAR HGB CONC 34.2 g/dL (31-35); MEAN CORPUSCULAR VOLUME 94.5 fL (81-99); MONOCYTES # (AUTO) 0.5 (0.2-0.8); MONOCYTES % 5.7 % (4.4-11.3); NEUTROPHILS # (AUTO) 4.8 (2.1-6.9); NEUTROPHILS % 57.6 % (38.7-80.0); PLATELET COUNT 294 x10e3/uL (140-360); RED BLOOD COUNT 4.33 x10e6/uL (3.6-5.1); RED CELL DISTRIBUTION WIDTH 11.7 % (11.7-14.4)
[2020-03-14 18:33] LABS: BACTERIA,URINE MODERATE /HPF; BILIRUBIN,URINE NEGATIVE (NEGATIVE); EPITHELIAL CELLS,URINE MODERATE /LPF; KETONES,URINE NEGATIVE (NEGATIVE); LEUKOCYTE ESTERASE ,URINE NEGATIVE (NEGATIVE); NITRITE,URINE NEGATIVE (NEGATIVE); PROTEIN,URINE DIPSTICK NEGATIVE (NEGATIVE); URINE UROBILINOGEN 0.2 mg/dL (0.2 - 1)
[2020-03-14 18:34] LABS: PREGNANCY TEST, URINE NEGATIVE (NEGATIVE)
[2020-03-14 18:51] LABS: ALANINE AMINOTRANSFERASE 28 IU/L (0-55); ALBUMIN 3.9 g/dL (3.5-5.0); ALBUMIN/GLOBULIN RATIO 1.3 (0.8-2.0); ALKALINE PHOSPHATASE 65 IU/L (40-150); ANION GAP 13.1 mmol/L (8-16); BLOOD UREA NITROGEN 14 mg/dL (7-26); BUN/CREATININE RATIO 17 (6-25); CALCIUM 8.8 mg/dL (8.4-10.2); CARBON DIOXIDE 25 mmol/L (22-29); CHLORIDE 107 mmol/L (98-107); CREATININE, SERUM 0.83 mg/dL (0.57-1.11); EST GLOMERULAR FILTRATION RATE > 60 ML/MIN (60-); GLUCOSE 86 mg/dL (74-118); POTASSIUM 4.1 mmol/L (3.5-5.1); SODIUM 141 mmol/L (136-145)
--- NOTE | 2020-03-14 18:57 | Emergency Department Note ---
History of Present Illnes History of Present Illness Chief Complaint: Genitourinary History of Present Illness This is a 34 year old female arrives to the ED with complaints left lower quadrant abdominal pain for several days. Patient states she is also concerned because she continues to have vaginal bleeding despite having a questionable hysterectomy. Patient states she lost her mother to cancer is concerned she might have the same. Patient states she also concerned that she might have HIV or AIDS, however, thinks she is just overreading information on the Internet. Historian: Patient Arrival Mode: Car Onset (how long ago): day(s) Radiation: Reports non-radiation Severity: mild Duration (how long): day(s) Timing of current episode: constant Progression: unchanged Chronicity: new Relieving factors: none Exacerbating factors: none Associated symptoms: Reports denies other symptoms Treatments prior to arrival: none Past Medical/Family History Physician Review I have reviewed the patient's past medical and family history. Any updates have been documented here. Past Medical History Recent Fever: No Clinical Suspicion of Infectio: Yes New/Unexplained Change in Ment: No Past Medical History: None Past Surgical History: Other Surgery: PLACENTAL ABRUPTION WITH LAST REQUIRING SURGICAL INTERVENTION. Social History Smoking Cessation: Never Smoker Counseling Performed: No Alcohol Use: None Any Illegal Drug Use: No Other Last Tetanus: utd Any Pre-Existing Lines (PICC,: No Review of Systems Review of Systems Constitutional: Reports no symptoms EENTM: Reports no symptoms Cardiovascular: Reports no symptoms Respiratory: Reports no symptoms Gastrointestinal: Reports as per HPI, Reports abdominal pain Genitourinary: Reports no symptoms Musculoskeletal: Reports no symptoms Integumentary: Reports no symptoms Neurological: Reports no symptoms Psychological: Reports no symptoms Endocrine: Reports no symptoms Hematological/Lymphatic: Reports no symptoms Physical Exam Related Data Allergies: Coded Allergies: promethazine (Verified Allergy, Severe, 08/31/18) Triage Vital Signs Vital Signs Date Time Temp Pulse Resp B/P (MAP) Pulse Ox O2 Delivery O2 Flow Rate FiO2 03/14/20 17:52 98.0 78 18 113/78 98 Room Air Vital signs reviewed: Yes Physical Exam CONSTITUTIONAL Constitutional: Present well-developed, Present well-nourished HENT HENT: Present normocephalic, Present atraumatic, Present oropharynx clear/moist, Present nose normal HENT L/R: Present left ext ear normal, Present right ext ear normal EYES Eyes: Reports PERRL, Reports conjunctivae normal NECK Neck: Present ROM normal PULMONARY Pulmonary: Present effort normal, Present breath sounds normal CARDIOVASCULAR Cardiovascular: Present regular rhythm, Present heart sounds normal, Present capillary refill normal, Present normal rate GASTROINTESTINAL Abdominal: Present soft, Present nontender, Present bowel sounds normal, Present tender GENITOURINARY Genitourinary: Present exam deferred SKIN Skin: Present warm, Present dry MUSCULOSKELETAL Musculoskeletal: Present ROM normal NEUROLOGICAL Neurological: Present alert, Present oriented x 3, Present no gross motor or sensory deficits PSYCHOLOGICAL Psychological: Present mood/affect normal, Present judgement normal Results Laboratory Result Diagram: 03/14/20 1825 Laboratory Laboratory Tests Test 03/14/20 18:25 03/14/20 17:50 White Blood Count 8.40 x10e3/uL (4.8-10.8) Red Blood Count 4.33 x10e6/uL (3.6-5.1) Hemoglobin 14.0 g/dL (12.0-16.0) Hematocrit 40.9 % (34.2-44.1) Mean Corpuscular Volume 94.5 fL (81-99) Mean Corpuscular Hemoglobin 32.3 pg (28-32) Mean Corpuscular Hemoglobin Concent 34.2 g/dL (31-35) Red Cell Distribution Width 11.7 % (11.7-14.4) Platelet Count 294 x10e3/uL (140-360) Neutrophils (%) (Auto) 57.6 % (38.7-80.0) Lymphocytes (%) (Auto) 34.6 % (18.0-39.1) Monocytes (%) (Auto) 5.7 % (4.4-11.3) Eosinophils (%) (Auto) 1.2 % (0.0-6.0) Basophils (%) (Auto) 0.5 % (0.0-1.0) Neutrophils # (Auto) 4.8 (2.1-6.9) Lymphocytes # (Auto) 2.9 (1.0-3.2) Monocytes # (Auto) 0.5 (0.2-0.8) Eosinophils # (Auto) 0.1 (0.0-0.4) Basophils # (Auto) 0.0 (0.0-0.1) Absolute Immature Granulocyte (auto 0.03 x10e3/uL (0-0.1) Urine Color Yellow (YELLOW) Urine Clarity Clear (CLEAR) Urine pH 6 (5 - 7) Urine Specific [place] 1.020 (1.010-1.025) Urine Protein Negative (NEGATIVE) Urine Glucose (UA) Negative (NEGATIVE) Urine Ketones Negative (NEGATIVE) Urine Blood Trace (NEGATIVE) Urine Nitrite Negative (NEGATIVE) Urine Bilirubin Negative (NEGATIVE) Urine Urobilinogen 0.2 mg/dL (0.2 - 1) Urine Leukocyte Esterase Negative (NEGATIVE) Urine RBC 6-10 /HPF (0-5) Urine WBC 11-20 /HPF (0-5) Urine Epithelial Cells Moderate /LPF (NONE) Urine Bacteria Moderate /HPF (NONE) Urine Test Negative (NEGATIVE) Lab results reviewed: Yes Imaging Imaging results reviewed: Yes Impressions IMPRESSION: Subtle findings which can be seen with urinary bladder cystitis. There are 2 small hyperdensities within the liver which are almost certainly benign, probably either focal nodular hyperplasia or hemangiomata. Unless there are suspicious clinical factors, no further follow-up required. Signed by: Sunny Johnson DO on 03/14/2020 8:01 PM Assessment & Plan Medical Decision Making MDM 34-year-old female arrived to the ED with left lower quadrant abdominal pain for several days. Patient's labwork unremarkable, urinalysis shows some wbc's and rbc's. Patient's CT head and pelvis consistent with cystitis. Assessment & Plan Final Impression: (1) Cystitis Depart Disposition: HOME, SELF-CARE Last Vital Signs Date Time Temp Pulse Resp B/P (MAP) Pulse Ox O2 Delivery O2 Flow Rate FiO2 03/14/20 17:52 98.0 78 18 113/78 98 Room Air Home Meds Active Scripts Fluconazole (DIFLUCAN) 150 Mg Tablet, 150 MG PO ONCE, #1 Prov:RODNEY ZAMBRANO DO 03/14/20 Sulfamethoxazole/Trimethoprim (BACTRIM DS TABLET) 1 Each Tablet, 1 TAB PO BID, #20 TAB 0 Refills Prov:RODNEY ZAMBRANO DO 03/14/20 RODNEY ZAMBRANO DO Mar 14, 2020 18:56
[2020-03-14] MEDS ORDERED: SODIUM CHLORIDE 0.9% 50ML 50 ML ONE (19:41)
[2020-03-14] MEDS ORDERED: IOPAMIDOL 370 MG/ML 200 ML INFUS..BTL INJ ONE (19:42)
--- NOTE | 2020-03-14 20:05 | Diagnostic Imaging Report ---
EXAM: CT Abdomen and Pelvis WITH contrast INDICATION: Left abdominal pain, urinary frequency COMPARISON: Abdominal CT 08/17/2019. TECHNIQUE: Abdomen and pelvis were scanned utilizing a multidetector helical scanner from the lung base to the pubic symphysis after administration of IV contrast. Coronal and sagittal reformations were obtained. Routine protocol was performed. Scan was performed when during portal venous phase. IV CONTRAST: 100 mL of Isovue 370 ORAL CONTRAST: None COMPLICATIONS: None RADIATION DOSE: Total DLP: 449 mGy*cm Estimated effective dose: (DLP x 0.015 x size factor) mSv CTDIvol has been reviewed. It is below the limits set by the Radiation Protocol Committee (RPC). Dose modulation, iterative reconstruction, and/or weight based adjustment of the mA/kV was utilized to reduce the radiation dose to as low as reasonably achievable. FINDINGS: LINES and TUBES: None. LOWER THORAX: Benign calcified granuloma in the right lung base. HEPATOBILIARY: A 1.7 cm hyperdense focus in the left hepatic lobe and a 1.3 cm hypodense focus in the periphery of the right hepatic lobe. Mild hepatomegaly. No biliary ductal dilation. GALLBLADDER: There are cholecystectomy clips. SPLEEN: No splenomegaly. PANCREAS: No focal masses or ductal dilatation. ADRENALS: No adrenal nodules KIDNEYS/URETERS: Kidneys enhance symmetrically. No hydronephrosis. No cystic or solid mass lesions. No stones. GI TRACT: No abnormal distention, wall thickening, or evidence of bowel obstruction. Appendix is normal. PELVIC ORGANS/BLADDER: Urinary bladder under distended with trace perivesicular fat stranding. Uterus and adnexa are unremarkable. LYMPH NODES: No lymphadenopathy. VESSELS: Unremarkable. PERITONEUM / RETROPERITONEUM: No free air or fluid. BONES: Unremarkable. SOFT TISSUES: Unremarkable. IMPRESSION: Subtle findings which can be seen with urinary bladder cystitis. There are 2 small hyperdensities within the liver which are almost certainly benign, probably either focal nodular hyperplasia or hemangiomata. Unless there are suspicious clinical factors, no further follow-up required. Signed by: Sunny Johnson DO on 03/14/2020 8:01 PM
[2020-03-14] MEDS ORDERED: CEFTRIAXONE SOD 1 GM/NS 50 ML 50 ML IV ONE ×2 (20:20→20:30)
[2020-03-14 20:22] VITALS: BP 122/76
[2020-03-14] MEDS ORDERED: DIFLUCAN150 MG PO (20:26)
[2020-03-14] MEDS ORDERED: BACTRIM DS TAB1 EACH PO (20:26)
== END 2020-03-14 20:37 | disposition home or self-care (01) ==
LOC: ER 17:15
DX: R10.32 Left lower quadrant pain (principal); N30.90 Cystitis, unspecified without hematuria
CPT/HCPCS: 36415; 74177; 80053; 81001; 81025; 84702; 85025; 87086; 99284

== ENCOUNTER 2021-01-26 17:19 | Emergency (ER) | payer SELFPAY ==
[~2021-01-26] VITALS: Ht 172.7 cm; Wt 72.6 kg
[~2021-01-26 17:19] MED LIST: BACTRIM DS TAB1 EACH PO; DIFLUCAN150 MG PO
[2021-01-26] MEDS ORDERED: PREDNISONE 20 MG TAB PO NR (17:45)
[2021-01-26] MEDS ORDERED: FAMOTIDINE 20 MG TAB PO NR (17:45)
[2021-01-26] MEDS ORDERED: PREDNISONE 20 MG TAB ONE (17:48)
[2021-01-26] MEDS ORDERED: FAMOTIDINE 20 MG TAB ONE (17:48)
[2021-01-26] MEDS ORDERED: FAMOTIDINE20 MG PO (17:49)
[2021-01-26] MEDS ORDERED: PREDNISONE20 MG PO ×2 (17:49→18:42)
[2021-01-26] MEDS ORDERED: BENADRYL25 M1 PO (17:49)
== END 2021-01-26 19:30 | disposition home or self-care (01) ==
LOC: ER 17:40
DX: L23.9 Allergic contact dermatitis, unspecified cause (principal)
CPT/HCPCS: 99283; J7512

== ENCOUNTER 2021-02-28 07:14 | Emergency (ER) | payer SELFPAY ==
[~2021-02-28] VITALS: Ht 172.7 cm; Wt 68.0 kg
[~2021-02-28 07:14] MED LIST changes: +BENADRYL25 M1 PO; +FAMOTIDINE20 MG PO; +PREDNISONE20 MG PO
== END 2021-02-28 08:00 | disposition home or self-care (01) ==
LOC: ER 07:30
DX: H00.011 Hordeolum externum right upper eyelid (principal); L03.213 Periorbital cellulitis; H00.031 Abscess of right upper eyelid
CPT/HCPCS: 99282

== ENCOUNTER 2021-06-05 09:22 | Emergency (ER) | payer BC ==
[~2021-06-05] VITALS: Ht 172.7 cm; Wt 68.0 kg
[2021-06-05] MEDS ORDERED: CASIRIVIMAB/IMDEVIMAB 10 ML in SODIUM CHLORIDE 0.9% 100 ML IV ONE (10:45)
[2021-06-05] MEDS ORDERED: IBUPROFEN 600 MG TAB PO ONE (11:44)
== END 2021-06-05 13:02 | disposition home or self-care (01) ==
LOC: ER 09:54
DX: U07.1 COVID-19 (principal); R06.02 Shortness of breath; R05.9 Cough, unspecified; F41.9 Anxiety disorder, unspecified
CPT/HCPCS: 87400; 99283; J7050; U0002

== ENCOUNTER 2021-12-26 16:42 | Emergency (ER) | payer SELFPAY ==
[~2021-12-26] VITALS: Ht 172.7 cm; Wt 79.8 kg
[2021-12-26 18:50] LABS: BASOPHILS % 0.4 % (0.0-1.0); EOSINOPHILS # (AUTO) 0.3 (0.0-0.4); EOSINOPHILS % 2.7 % (0.0-6.0); HEMATOCRIT 39.3 % (34.2-44.1); HEMOGLOBIN 13.7 g/dL (12.0-16.0); LYMPHOCYTES # (AUTO) 3.6 (1.0-3.2); LYMPHOCYTES % 33.7 % (18.0-39.1); MEAN CORPUSCULAR HEMOGLOBIN 33.5 pg (28-32); MEAN CORPUSCULAR HGB CONC 34.9 g/dL (31-35); MEAN CORPUSCULAR VOLUME 96.1 fL (81-99); MONOCYTES # (AUTO) 0.8 (0.2-0.8); MONOCYTES % 7.6 % (4.4-11.3); NEUTROPHILS # (AUTO) 5.9 (2.1-6.9); NEUTROPHILS % 55.2 % (38.7-80.0); PLATELET COUNT 316 x10e3/uL (140-360); RED BLOOD COUNT 4.09 x10e6/uL (3.6-5.1); RED CELL DISTRIBUTION WIDTH 11.6 % (11.7-14.4)
[2021-12-26 19:01] LABS: ANION GAP 12.9 mmol/L (8-16); CREATININE, SERUM 0.77 mg/dL (0.57-1.11); POTASSIUM 3.9 mmol/L (3.5-5.1)
[2021-12-26] MEDS ORDERED: DONNATAL/LIDOCAINE/MAALOX 30 ML SUSP PO ONE (19:30)
[2021-12-26] MEDS ORDERED: IOPAMIDOL 370 MG/ML 100 ML INFUS..BTL INJ ONE (19:40)
[2021-12-26] MEDS ORDERED: LIDOCAINE VISC 2% SOLN 15 ML UDC ONE (19:43)
[2021-12-26] MEDS ORDERED: MAGNESIUM/ALUMINUM/SIMETHICONE 30 ML UDC ONE (19:43)
[2021-12-26] MEDS ORDERED: BELLADONNA ALK/PHENOBARBITAL 5 ML UDC ONE (19:43)
[2021-12-26 22:13] VITALS: BP 107/53
== END 2021-12-26 22:00 | disposition home or self-care (01) ==
LOC: ER 17:41
DX: R05.9 Cough, unspecified (principal); J40 Bronchitis, not specified as acute or chronic; J02.9 Acute pharyngitis, unspecified; F41.9 Anxiety disorder, unspecified; Z20.822 Contact with and (suspected) exposure to COVID-19
CPT/HCPCS: 36415; 70491; 71045; 80048; 83518; 84702; 85025; 99284; Q9967; U0002

== ENCOUNTER 2022-04-10 08:55 | Emergency (ER) | payer SELFPAY ==
[~2022-04-10] VITALS: Ht 172.7 cm; Wt 79.8 kg
[2022-04-10] MEDS ORDERED: DICYCLOMINE HCL20 MG PO (09:23)
[2022-04-10] MEDS ORDERED: ONDANSETRON ODT4 MG PO (09:23)
== END 2022-04-10 09:33 | disposition home or self-care (01) ==
LOC: ER 09:00
DX: K14.9 Disease of tongue, unspecified (principal); R19.7 Diarrhea, unspecified; F41.9 Anxiety disorder, unspecified
CPT/HCPCS: 99282

== ENCOUNTER 2022-05-23 21:45 | Emergency (ER) | payer BC ==
[~2022-05-23] VITALS: Ht 172.7 cm; Wt 79.8 kg
[~2022-05-23 21:45] MED LIST changes: +DICYCLOMINE HCL20 MG PO; +ONDANSETRON ODT4 MG PO
[2022-05-23] MEDS ORDERED: ONDANSETRON HCL INJ 2MG/ML 2ML 2 MG/ML VIAL IV STA (22:00)
[2022-05-23] MEDS ORDERED: Morphine 4mg INJECTION 4 MG/ML INJ IV ONE (22:00)
[2022-05-23] MEDS ORDERED: SODIUM CHLORIDE 0.9% 1000ML 1,000 ML IV ONE (22:00)
[2022-05-23 22:17] LABS: BASOPHILS # (AUTO) 0.1 (0.0-0.1); BASOPHILS % 0.6 % (0.0-1.0); EOSINOPHILS # (AUTO) 0.2 (0.0-0.4); EOSINOPHILS % 2.8 % (0.0-6.0); HEMATOCRIT 39.3 % (34.2-44.1); HEMOGLOBIN 13.5 g/dL (12.0-16.0); LYMPHOCYTES # (AUTO) 3.4 (1.0-3.2); LYMPHOCYTES % 43.2 % (18.0-39.1); MEAN CORPUSCULAR HEMOGLOBIN 33.3 pg (28-32); MEAN CORPUSCULAR HGB CONC 34.4 g/dL (31-35); MEAN CORPUSCULAR VOLUME 96.8 fL (81-99); MONOCYTES # (AUTO) 0.4 (0.2-0.8); MONOCYTES % 5.6 % (4.4-11.3); NEUTROPHILS # (AUTO) 3.7 (2.1-6.9); NEUTROPHILS % 47.5 % (38.7-80.0); PLATELET COUNT 328 x10e3/uL (140-360); RED BLOOD COUNT 4.06 x10e6/uL (3.6-5.1); RED CELL DISTRIBUTION WIDTH 11.1 % (11.7-14.4)
[2022-05-23 22:30] LABS: ALANINE AMINOTRANSFERASE 24 IU/L (0-55); ALBUMIN/GLOBULIN RATIO 1.5 (0.8-2.0); ALKALINE PHOSPHATASE 55 IU/L (40-150); ANION GAP 15.8 mmol/L (8-16); BLOOD UREA NITROGEN 9 mg/dL (7-26); BUN/CREATININE RATIO 12 (6-25); CALCIUM 8.8 mg/dL (8.4-10.2); CARBON DIOXIDE 21 mmol/L (22-29); CHLORIDE 108 mmol/L (98-107); CREATININE, SERUM 0.77 mg/dL (0.57-1.11); GLUCOSE 93 mg/dL (74-118); LIPASE 10 U/L (8-78); POTASSIUM 3.8 mmol/L (3.5-5.1); SODIUM 141 mmol/L (136-145)
[2022-05-23 22:41] LABS: CLARITY,URINE CLOUDY (CLEAR); COLOR,URINE YELLOW (YELLOW); KETONES,URINE TRACE (NEGATIVE); LEUKOCYTE ESTERASE ,URINE NEGATIVE (NEGATIVE); NITRITE,URINE NEGATIVE (NEGATIVE); PROTEIN,URINE DIPSTICK NEGATIVE (NEGATIVE); URINE UROBILINOGEN 0.2 mg/dL (0.2 - 1)
[2022-05-23 22:46] LABS: BACTERIA,URINE FEW /HPF; EPITHELIAL CELLS,URINE MANY /LPF; WBC,URINE (MAN) 0-5 /HPF (0-5)
[2022-05-23 22:47] LABS: MUCUS,URINE MODERATE (RARE)
[2022-05-24] MEDS ORDERED: IOPAMIDOL 370 MG/ML 100 ML INFUS..BTL INJ ONE
[2022-05-24] MEDS ORDERED: KETOROLAC TROMETHAMINE 30 MG/ML VIAL IV STA (01:53)
[2022-05-24] MEDS ORDERED: ONDANSETRON ODT4 MG PO (01:55)
== END 2022-05-24 02:27 | disposition home or self-care (01) ==
LOC: ER 21:54
DX: R10.33 Periumbilical pain (principal); F41.9 Anxiety disorder, unspecified
CPT/HCPCS: 36415; 74177; 76856; 80053; 81001; 83690; 84702; 85025; 99284; J1885; J2270; J2405; J7030; Q9967

== ENCOUNTER 2022-08-01 14:35 | Emergency (ER) | payer BC, MEDICARE ==
[~2022-08-01] VITALS: Ht 172.7 cm; Wt 79.8 kg
[2022-08-01] MEDS ORDERED: KETOROLAC TROMETHAMINE 30 MG/ML VIAL IV STA (15:00)
[2022-08-01] MEDS ORDERED: Morphine 4mg INJECTION 4 MG/ML INJ IV ONE (15:00)
[2022-08-01] MEDS ORDERED: SODIUM CHLORIDE 0.9% 1000ML 1,000 ML IV SCH (15:00)
[2022-08-01] MEDS ORDERED: ONDANSETRON HCL INJ 2MG/ML 2ML 2 MG/ML VIAL IV STA (15:00)
[2022-08-01 15:18] LABS: BASOPHILS # (AUTO) 0.1 (0.0-0.1); BASOPHILS % 0.6 % (0.0-1.0); EOSINOPHILS # (AUTO) 0.1 (0.0-0.4); EOSINOPHILS % 1.2 % (0.0-6.0); HEMATOCRIT 43.5 % (34.2-44.1); HEMOGLOBIN 14.4 g/dL (12.0-16.0); LYMPHOCYTES % 33.6 % (18.0-39.1); MEAN CORPUSCULAR HEMOGLOBIN 33.3 pg (28-32); MEAN CORPUSCULAR HGB CONC 33.1 g/dL (31-35); MEAN CORPUSCULAR VOLUME 100.5 fL (81-99); MONOCYTES # (AUTO) 0.5 (0.2-0.8); MONOCYTES % 5.3 % (4.4-11.3); NEUTROPHILS # (AUTO) 5.3 (2.1-6.9); PLATELET COUNT 321 x10e3/uL (140-360); RED BLOOD COUNT 4.33 x10e6/uL (3.6-5.1)
[2022-08-01 15:21] LABS: CLARITY,URINE CLEAR (CLEAR); COLOR,URINE YELLOW (YELLOW); KETONES,URINE NEGATIVE (NEGATIVE); LEUKOCYTE ESTERASE ,URINE NEGATIVE (NEGATIVE); NITRITE,URINE NEGATIVE (NEGATIVE); PROTEIN,URINE DIPSTICK NEGATIVE (NEGATIVE); URINE UROBILINOGEN 0.2 mg/dL (0.2 - 1)
[2022-08-01 15:33] LABS: EPITHELIAL CELLS,URINE RARE /LPF
[2022-08-01 15:37] LABS: BILIRUBIN,DIRECT 0.1 mg/dL (0.0-0.5); CALCIUM 8.7 mg/dL (8.4-10.2); CREATININE, SERUM 0.75 mg/dL (0.57-1.11)
[2022-08-01] MEDS ORDERED: IOPAMIDOL 370 MG/ML 100 ML INFUS..BTL INJ ONE (15:59)
[2022-08-01] MEDS ORDERED: NAPROSYN500 MG PO (18:14)
[2022-08-01] MEDS ORDERED: ONDANSETRON ODT4 MG PO (18:15)
[2022-08-01] MEDS ORDERED: ULTRAM 50MG50 MG PO (18:15)
[2022-08-01 18:42] VITALS: BP 110/79
== END 2022-08-01 18:51 | disposition home or self-care (01) ==
LOC: ER 14:47
DX: R10.31 Right lower quadrant pain (principal); F41.9 Anxiety disorder, unspecified; M54.50 Low back pain, unspecified; R19.7 Diarrhea, unspecified
CPT/HCPCS: 36415; 74177; 76830; 76856; 80048; 80076; 81001; 81025; 83690; 85025; 99284; J1885; J2270; J2405; J7030; Q9967

== ENCOUNTER 2024-04-18 18:44 | Emergency (ER) | payer SELFPAY ==
[~2024-04-18] VITALS: Ht 172.7 cm; Wt 79.8 kg
[~2024-04-18 18:44] MED LIST changes: +NAPROSYN500 MG PO; +ULTRAM 50MG50 MG PO
[2024-04-18 19:12] VITALS: PULSE 68; RESP 16; TEMP 98.8; O2SAT 100
[2024-04-18] MEDS: KETOROLAC TROMETHAMINE 60 MG/2 ML VIAL IM ONE (19:31)
[2024-04-18] MEDS: DEXAMETHASONE SOD PHOS 10 MG/1 ML VIAL IM ONE (19:32)
[2024-04-18 20:14] LABS: STREPTOCOCCUS GRP A ANTIGEN NEGATIVE (NEGATIVE)
[2024-04-18 20:31] LABS: INFLUENZAE A&B ANTIGEN (RAPID) NEGATIVE (NEGATIVE)
[2024-04-18 20:32] LABS: RESPIRATORY SYNC. VIRUS POSITIVE (NEGATIVE)
[2024-04-18] MEDS ORDERED: PREDNISONE20 MG PO (20:45)
[2024-04-18] MEDS ORDERED: KETOROLAC TROME10 MG PO (20:45)
[2024-04-18] MEDS ORDERED: AZITHROMYCIN250 MG PO (20:45)
[2024-04-18] MEDS ORDERED: VENTOLIN HFA18 GM INH (20:47)
== END 2024-04-18 20:45 | disposition home or self-care (01) ==
LOC: ER 18:50
DX: R05.9 Cough, unspecified (principal); J21.0 Acute bronchiolitis due to respiratory syncytial virus; F41.9 Anxiety disorder, unspecified; Z11.52 Encounter for screening for COVID-19; R94.31 Abnormal electrocardiogram [ECG] [EKG]
CPT/HCPCS: 71046; 83518; 87070; 87400; 87420; 93005; 99283; J1100; J1885; U0002

== ENCOUNTER 2024-09-11 19:32 | Emergency (ER) | payer SELFPAY ==
[~2024-09-11] VITALS: Ht 172.7 cm; Wt 79.8 kg
[~2024-09-11 19:32] MED LIST changes: +AZITHROMYCIN250 MG PO; +KETOROLAC TROME10 MG PO; +VENTOLIN HFA18 GM INH
[2024-09-11 19:35] VITALS: TEMP 97.9
[2024-09-11 20:00] LABS: CLARITY,URINE SL CLOUDY (CLEAR); COLOR,URINE YELLOW (YELLOW); PH,URINE 5.5 (5 - 7)
[2024-09-11 20:01] LABS: BILIRUBIN,URINE NEGATIVE (NEGATIVE); GLUCOSE, URINE NEGATIVE (NEGATIVE); KETONES,URINE NEGATIVE (NEGATIVE); LEUKOCYTE ESTERASE ,URINE NEGATIVE (NEGATIVE); NITRITE,URINE NEGATIVE (NEGATIVE); PREGNANCY TEST, URINE NEGATIVE (NEGATIVE); PROTEIN,URINE DIPSTICK NEGATIVE (NEGATIVE); URINE UROBILINOGEN 0.2 mg/dL (0.2 - 1)
[2024-09-11 20:07] LABS: BASOPHILS # (AUTO) 0.1 (0.0-0.1); BASOPHILS % 0.6 % (0.0-1.0); EOSINOPHILS # (AUTO) 0.2 (0.0-0.4); EOSINOPHILS % 1.8 % (0.0-6.0); HEMOGLOBIN 14.5 g/dL (12.0-16.0); LYMPHOCYTES # (AUTO) 4.5 (1.0-3.2); LYMPHOCYTES % 48.7 % (18.0-39.1); MEAN CORPUSCULAR HEMOGLOBIN 33.1 pg (28-32); MEAN CORPUSCULAR HGB CONC 35.4 g/dL (31-35); MEAN CORPUSCULAR VOLUME 93.6 fL (81-99); MONOCYTES # (AUTO) 0.5 (0.2-0.8); MONOCYTES % 5.3 % (4.4-11.3); NEUTROPHILS % 43.4 % (38.7-80.0); PLATELET COUNT 361 x10e3/uL (140-360); RED BLOOD COUNT 4.38 x10e6/uL (3.6-5.1); RED CELL DISTRIBUTION WIDTH 11.8 % (11.7-14.4); WHITE BLOOD COUNT 9.28 x10e3/uL (4.8-10.8)
[2024-09-11] MEDS: SODIUM CHLORIDE 0.9% 1000ML 1,000 ML IV STA (20:07)
[2024-09-11] MEDS: KETOROLAC TROMETHAMINE 30 MG/ML VIAL IV STA (20:07)
[2024-09-11] MEDS: ONDANSETRON HCL INJ 2MG/ML 2ML 2 MG/ML VIAL IV STA (20:07)
[2024-09-11 20:08] LABS: BACTERIA,URINE RARE /HPF; EPITHELIAL CELLS,URINE MODERATE /LPF; WBC,URINE (MAN) 0-5 /HPF (0-5)
[2024-09-11 20:33] LABS: ALBUMIN 4.3 g/dL (3.5-5.0); ALBUMIN/GLOBULIN RATIO 1.6 (0.8-2.0); BILIRUBIN,TOTAL 0.3 mg/dL (0.2-1.2); CALCIUM 9.4 mg/dL (8.4-10.2); CREATININE, SERUM 0.8 mg/dL (0.57-1.11)
[2024-09-11] MEDS ORDERED: ONDANSETRON ODT4 MG PO (21:00)
[2024-09-11] MEDS ORDERED: FLOMAX0.4 MG PO (21:00)
[2024-09-11] MEDS ORDERED: ULTRAM 50MG50 MG PO (21:00)
[2024-09-11] MEDS: Morphine 4mg INJECTION 4 MG/ML INJ IV STA (21:10)
[2024-09-11 21:11] VITALS: PULSE 67; RESP 17
[2024-09-11 21:54] VITALS: BP 123/67; PULSE 60; RESP 19; TEMP 98; O2SAT 99
[2024-09-11 22:46] LABS: AMPHETAMINES SCREEN,URINE NEGATIVE (NEGATIVE); BENZODIAZEPINES SCREEN,URINE NEGATIVE (NEGATIVE); CANNABINOIDS SCREEN,URINE POSITIVE (NEGATIVE); COCAINE SCREEN,URINE NEGATIVE (NEGATIVE); METHADONE SCREEN, URINE NEGATIVE (NEGATIVE); OPIATES SCREEN,URINE NEGATIVE (NEGATIVE); PHENCYCLIDINE SCREEN,URINE NEGATIVE (NEGATIVE)
== END 2024-09-11 22:00 | disposition home or self-care (01) ==
LOC: ER 19:38
DX: R31.9 Hematuria, unspecified (principal); R10.13 Epigastric pain; F41.9 Anxiety disorder, unspecified
CPT/HCPCS: 36415; 74176; 80053; 80307; 81001; 81025; 83690; 85025; 99284; J1885; J2270; J2405; J7030